=== PATIENT | male | born 1950 | race Caucasian/White ===

== ENCOUNTER 2017-11-09 20:00 | Inpatient (IN) ==
[2017-11-09 20:26] LABS: Basophils % 0.2 %; Eosinophils # 0.1 K/mcL (0.0-0.6); Eosinophils % 0.3 %; Hematocrit 41.5 % (37.5-50.1); Hemoglobin 13.5 g/dL (12.9-16.9); Immature Granulocytes % 0.5 % (0-4); Lymphocytes # 1.8 K/mcL (0.6-4.6); Lymphocytes % 12.2 %; Mean Corpuscular HGB Conc 32.5 g/dL (31.6-35.5); Mean Corpuscular Hemoglobin 28.5 pg (28.0-33.3); Mean Corpuscular Volume 87.7 fL (83.0-100.0); Mean Platelet Volume 9.7 fL (9.4-12.4); Monocytes # 0.7 K/mcL (0.0-1.3); Monocytes % 4.7 %; Neutrophils # 12.3 K/mcL (1.6-8.9); Platelet Count 231 K/mcL (140-400); Red Blood Count 4.73 M/mcL (4.19-5.50); Red Cell Distribution Width 14.2 % (11.5-14.5); Segmented Neutrophils % 82.1 %
[2017-11-09 20:44] LABS: Potassium 3.3 mEq/L (3.5-5.1)
[2017-11-09] MEDS ORDERED: Levofloxacin 750 MG/150 ML 750 MG/150 ML BAG IVPB ONE (21:07)
[2017-11-09] MEDS ORDERED: Ibuprofen 600 MG TABLET PO ONE (21:07)
[2017-11-09] MEDS ORDERED: Aspirin 81 MG TAB.CHEW PO ONE (21:07)
--- NOTE | 2017-11-09 22:04 | Emergency Department Note ---
Disposition Clinical Impression: Stable angina, Community acquired bacterial pneumonia Disposition: Admitted As Inpatient Condition: Good [facility]: [facility]Primary Care Provider[facility] - Forms: ED Satisfaction Letter Time of Disposition: 22:09 Chest Pain HPI - General Chief Complaint: ED Chest Pain Stated Complaint: chest pain Time Seen by Provider: 11/09/17 20:05 Source: patient Mode of arrival: ambulatory Limitations: no limitations Vital Signs Reviewed: Yes Nursing Notes Reviewed: Yes - History of Present Illness HPI Narrative: 66-year-old male presents to the emergency department with chest pain. He said this began a few days ago and has progressively gotten worse he said the chest pain is on the left side radiating up into his neck. He states had a cardiac stent placed in December she is no longer on any anticoagulation for that. He says he is short of breath. Does have history of COPD is on home oxygen. Her all the time says he only wears it when he needs it. He has a pulse ox which he walks his regularly that is normally been around 92-93%. Patient has a cough with sputum production unsure of the color the sputum production. Patient said he did not feel like he had a fever but on presentation here he did have a fever of 103. Patient otherwise having no complaints including headache, blurry vision, neck pain, back pain, chills, nausea, vomiting, abdominal pain, pain with urination, change in bowel movements and painting and on the arms and legs or any generalized weakness. Severity scale (1-10): 7 - Related Data Allergies Allergy/AdvReac Type Severity Reaction Status Date / Time No Known Allergies Allergy Verified 11/09/17 20:04 Review of Systems: 10 point review of systems done and negative unless otherwise stated in history of present illness. All systems ED: reviewed and negative except as stated. Review of Systems: As Per HPI Chest Pain PMH - Past Medical History Medical history: Reports: COPD, coronary artery disease, hyperlipidemia, hypertension, myocardial infarction Psychiatric history: Reports: no psych history - Social History Smoking Status: Former smoker Alcohol use: Reports: none Drug use: Reports: none Physical Exam - General Limitations: no limitations General appearance: alert, in no apparent distress - Head Head exam: atraumatic, normocephalic, normal inspection - Eye Eye exam: Present: normal appearance, PERRL, EOMI - ENT ENT exam: normal exam, normal oropharynx, mucous membranes moist - Neck Neck exam: Present: normal inspection, full ROM, trachea midline - Chest Chest inspection: Present: normal inspection, symmetric chest wall rise - Respiratory Respiratory exam: Absent: respiratory distress, wheezes, stridor, accessory muscle use - Expanded Respiratory Exam Location: rhonchi: Left, Right, Upper, Lower - Cardiovascular Cardiovascular exam: Present: regular rate, normal rhythm, normal heart sounds - Abdominal Exam Abdominal exam: Present: soft, Non-Tender. Absent: tenderness, distention, guarding, rebound, rigidity - Extremities Exam Extremities exam: Present: normal inspection, full ROM. Absent: tenderness, pedal edema - Expanded Lower Extremity Exam Neurovascular/Tendon exam: Present: normal capillary refill. Absent: pulse deficit, motor deficit, sensory deficit, tendon deficit - Back Exam Back exam: Present: normal inspection, full ROM. Absent: tenderness, CVA tenderness (R), CVA tenderness (L) - Neurological Exam Neurological exam: Present: alert, oriented X3 - Skin Skin exam: Present: warm, dry, intact, normal color Course Course Narrative: 66-year-old male presents the emergency department complaining of chest pain and shortness of breath. Patient did have a fever here. Will get CBC, BMP, blood cultures and troponin. as well as chest x-ray. Due to him clinically having pneumonia we will start treatment with Levaquin. She is also having chest pain so we will give him aspirin as well. Vital Signs Temperature 103 F H 11/09/17 20:04 Pulse Rate 78 11/09/17 20:04 Respiratory Rate 22 11/09/17 20:04 Blood Pressure 136/66 11/09/17 20:04 O2 Sat by Pulse Oximetry 94 11/09/17 20:04 Temperature 103 F H 11/09/17 20:04 Pulse Rate 68 11/09/17 22:09 Respiratory Rate 22 11/09/17 20:04 Blood Pressure 127/52 11/09/17 22:09 O2 Sat by Pulse Oximetry 96 11/09/17 22:09 Oxygen Delivery Oxygen Delivery Room Air Chest Pain - MDM Narrative Medical decision making narrative: 66-year-old male presented to the emergency department complaining of shortness of breath and chest pain. Patient does have history of a stent placement in December. Says the chest pain is left-sided going up into his jaws was normal here but we will give him aspirin. There was no acute ST changes or any other signs of ischemia on his EKG. Patient did not clinically have pneumonia even though chest x-ray showed no pneumonia so we did start Levaquin. He was hypoxic at 92% but is chronically on oxygen for his COPD. Patient did have fever and evaluations we did give him ibuprofen. Patient is going to be admitted to the hospital service for trending troponins due to his chest pain as well as IV antibiotics which is Levaquin. Blood cultures were ordered and are pending. Spoke with Dr. Goldstein the hospitalist who agreed to admit the patient to their service. Patient is admitted in stable condition. Chest X-Ray 11/09/17 20:13 IMPRESSION: No acute process. D/ / Odilon Tsai MD / Odilon Tsai MD Interpreting Provider: Odilon Tsai MD - Medical Records Medical records reviewed: Yes I reviewed the patient's medical records. - Lab Data Lab results reviewed: Yes I reviewed the patient's lab results. Result diagrams: 11/09/17 20:16 11/09/17 20:16 Lab Results 11/09/17 11/09/17 11/09/17 Range/Units 20:16 20:16 20:16 WBC 15.0 H (4.3-11.1) K/mcL RBC 4.73 (4.19-5.50) M/mcL Hgb 13.5 (12.9-16.9) g/dL Hct 41.5 (37.5-50.1) % MCV 87.7 (83.0-100.0) fL MCH 28.5 (28.0-33.3) pg MCHC 32.5 (31.6-35.5) g/dL RDW 14.2 (11.5-14.5) % Plt Count 231 (140-400) K/mcL MPV 9.7 (9.4-12.4) fL Immature Gran % 0.5 (0-4) % Seg Neutrophils % 82.1 % Lymphocytes % 12.2 % Monocytes % 4.7 % Eosinophils % 0.3 % Basophils % 0.2 % Neutrophils # 12.3 H (1.6-8.9) K/mcL Lymphocytes # 1.8 (0.6-4.6) K/mcL Monocytes # 0.7 (0.0-1.3) K/mcL Eosinophils # 0.1 (0.0-0.6) K/mcL Basophils # 0.0 (0.0-0.2) K/mcL Sodium 136 (136-145) mEq/L Potassium 3.3 L (3.5-5.1) mEq/L Chloride 99 (98-107) mEq/L Carbon Dioxide 28 (23-29) mEq/L BUN 33 H (8-23) mg/dL Creatinine 1.50 H (0.70-1.30) mg/dL Est GFR ( Amer) 56 L (> 60) Est GFR (Non-Af Amer) 47 L (> 60) BUN/Creatinine Ratio 22 (6-26) Glucose 129 H (70-105) mg/dL Calculated Osmolality 291 (280-300) Calcium 9.0 (8.6-10.3) mg/dL Troponin I < 0.03 (< 0.04) ng/mL - Radiology Data Radiology results reviewed: Yes I reviewed the patient's radiology results. - EKG Data EKG attestation: Yes I reviewed and interpreted this EKG. EKG results narrative: EKG done at 2012 review myself the attending shows sinus rhythm at a rate of 75 , MS interval 159, QRS 93, QTC 425 with a normal axis. There is no acute ST changes, no acute T-wave abnormalities, no other signs of ischemia. No signs of any heart strain or hypertrophy or any heart blocks. No signs of WPW/ Brugada syndrome. This EKG is unchanged when compared with old one done . Heart Score - Score History: Moderately Suspicious EKG: Normal Age: Greater than 65 Risk Factors: Equal/Greater than 3 risk factor or history of atherosclerotic disease Troponin: Less than normal limit HEART Score Total: 5 Attestation Statement - Attestation Attestation: I, Alfredo Alberto MD, personally evaluated this patient and discussed their management with the resident physician. I reviewed the resident's note and agree with the documented findings, medical decision making, and plan of care. 66-year-old male presents to the emergency department with a complaint of left- sided chest pain which started last evening. He states the pain started last evening and hurt pretty bad all night but did not seem to be better throughout the day today. This evening the pain became worse again. The pain is in the entire left side of the chest and radiates up into the left side of the neck certain movements. No radiation to the arms or back. Patient does have a history of coronary artery disease and has coronary artery stents. He does complain of some increased nonproductive cough over the past few days. Also he has not really noticed a fever but has had a lot of chills since last evening and states he is been freezing all day. Temperature here noted to be 103. On examination patient is a well-developed well-nourished well-appearing elderly male in no acute distress. He is alert and oriented 3. There is no cyanosis or diaphoresis. Rest is nontender to palpation. Breath sounds are equal bilaterally with some mild left posterior rales. No wheezes noted. Heart regular rate and rhythm. Abdomen soft and nontender with normal bowel sounds. EKG normal. Chest x-ray shows no acute process. Labs reviewed. Flu swab negative. Leukocytosis present. Although there is nothing on the chest x-ray at present patient clinically has pneumonia with cough, fever, leukocytosis, shortness of breath, and left-sided chest pain. Blood cultures obtained and antibiotics initiated. The hospitalist, Dr. Goldstein, was consulted and accepted admission of the patient.
[2017-11-10] MEDS ORDERED: Acetaminophen 325 MG TABLET PO PRN (00:20)
[2017-11-10] MEDS ORDERED: Naloxone 0.4 MG/ML INJ IVP PRN (00:20)
[2017-11-10] MEDS ORDERED: Ondansetron 4 MG/2 ML VIAL IVP PRN (00:20)
[2017-11-10] MEDS ORDERED: Ipratropium/Albuterol Neb 3 ML IH PRN (00:26)
[2017-11-10] MEDS ORDERED: Furosemide 20 MG TABLET PO PRN (00:27)
[2017-11-10] MEDS ORDERED: Nitroglycerin 0.4 MG TAB.SUBL SL PRN (00:27)
[2017-11-10 01:13] LABS: Basophils % 0.2 %; Eosinophils % 0.1 %; Hematocrit 36.8 % (37.5-50.1); Hemoglobin 12.2 g/dL (12.9-16.9); Immature Granulocytes % 1.1 % (0-4); Lymphocytes # 1.2 K/mcL (0.6-4.6); Lymphocytes % 6.8 %; Mean Corpuscular HGB Conc 33.2 g/dL (31.6-35.5); Mean Corpuscular Hemoglobin 28.7 pg (28.0-33.3); Mean Corpuscular Volume 86.6 fL (83.0-100.0); Mean Platelet Volume 9.8 fL (9.4-12.4); Monocytes # 1.4 K/mcL (0.0-1.3); Monocytes % 8.2 %; Neutrophils # 14.4 K/mcL (1.6-8.9); Platelet Count 191 K/mcL (140-400); Red Blood Count 4.25 M/mcL (4.19-5.50); Red Cell Distribution Width 14.4 % (11.5-14.5); Segmented Neutrophils % 83.6 %
[2017-11-10] MEDS: Carbidopa/Levodopa 25/100 TABLET PO SCH ×4 (01:15→21:46)
[2017-11-10] MEDS: cefTRIAXone 1,000 MG in Water for inj. (sterile) 10 ML IVP SCH ×2 (01:16→09:56)
[2017-11-10] MEDS: predniSONE 20 MG TABLET PO SCH ×2 (01:17→09:51)
[2017-11-10] MEDS: Azithromycin 500 MG in D5% in Water 250 ML IVPB SCH (01:17)
[2017-11-10 01:33] LABS: Calcium 8.7 mg/dL (8.6-10.3); Magnesium 1.6 mg/dL (1.6-2.6)
[2017-11-10] MEDS: Ipratropium/Albuterol Neb 3 ML IH SCH ×4 (03:48→22:34)
--- NOTE | 2017-11-10 05:14 | Internal Med History&Physical ---
Date of Encounter: 11/09/17 Time of Encounter: 22:00 Assessment and Plan (1) COPD exacerbation Current visit: Yes Status: Acute Pt has increased SOB with wheezing, consider COPD exacerbation. - Place pt on abx, steroid and bronchidialator. - Cont Oygen supportive treatment. (2) Chest pain Current visit: Yes Status: Acute Etiology is undetermined. Pt has COPD exacerbation, may contribute this mild chest pain, however, pt has hx of CAD s/p stent, need to r/o ACS. EKG unremarkable. - Pt had stress test recently (last year) in [place], negative. - Will place pt on continuous cardiac monitoring. - Track 3 sets of troponin - Check echo Qualifiers: Chest pain type: other chest pain Qualified Code(s): R07.89 - Other chest pain; R07.8 - Other chest pain (3) HTN (hypertension) Current visit: Yes Status: Acute Cont home meds. Qualifiers: Hypertension type: essential hypertension Qualified Code(s): I10 - Essential (primary) hypertension (4) Parkinson disease Current visit: Yes Status: Acute Cont home med carbidopa/levodopa (5) CAD (coronary artery disease) Current visit: Yes Status: Acute Cont home med asa, BB, and statin. Qualifiers: Coronary Disease-Associated Artery/Lesion type: [place] artery [place] vs. transplanted heart: [place] heart Associated angina: with stable angina Qualified Code(s): I25.118 - Atherosclerotic heart disease of [place] coronary artery with other forms of angina pectoris (6) DVT prophylaxis Current visit: Yes Status: Acute Heparin SC (7) Community acquired bacterial pneumonia Current visit: Yes Status: Acute Pt has fever, leukocytosis, increased cough, and increased SOB, although CXR negative, consider early stage CAP. - Will treat pt with azithromycin and rocephin. - Closely monitor pt. Internal Medicine - H&P: HPI Chief complaint: chest pain Admitted From: Home Plans for Post Hospital Care: Home History of present illness: Mr. Moctezuma is a 66 year old male with hx of COPD on home O2, PTSD, HTN, CKD stage III, parkinson disease, CAD s/p stent, present to ER for chest pain since yesterday evening. Pain is sharp, located on left chest and radiated to left neck. Constant, 2-3/10. Pt has chills and has fever to 103. He also has nonproductive cough for 1-2 days and increased SOB. Pt has mild nausea but no vomiting. Pt denies diaphoresis. Past Med Surg Social Fam HX - Past Medical History Medical history: COPD, coronary artery disease, hyperlipidemia, hypertension, myocardial infarction, renal disease, other Psychiatric history: PTSD - Social History Smoking Status: Former smoker Alcohol use: none Drug use: none - Family History Mother Adopted: [place]: ETHAL Family Member Ethnicity: Non- Living Status: Age at : 87 Cause of : SEPSIS Hx Family Cardiac Disorders: Yes (HTN) Hx Family Respiratory Disorders: No Hx Family Cancer: No Hx Family GI Disorders: No Hx Family Genitourinary Disorders: No Hx Family Endocrine Disorder: No Hx Family Musculoskeletal Disorders: No Hx Family Neuromuscular Disorders: No Hx Family Neurologic Disorders: Yes (CVA) Hx Family HEENT Disorders: No Hx Family Autoimmune Disorders: No Hx Family Reproductive Disorders: No Hx Family Psychosocial Disorders: No Hx Family Medical Disorders: No Internal Medicine - H&P: Meds Albuterol Sulfate [Albuterol Inhaler] 2 puff IH Q4H PRN 11/09/17 [History] Aspirin 81 mg PO DAILY 11/09/17 [History] Carbidopa/Levodopa [Carbidopa-Levodopa 25-100 Tab] 1 tab PO TID 11/09/17 [ History] Clopidogrel [Plavix] 75 mg PO DAILY 11/09/17 [History] Enalapril Maleate [Vasotec] 20 mg PO DAILY 11/09/17 [History] Furosemide [Lasix] 20 mg PO AD PRN 11/09/17 [History] Metoprolol Succinate 100 mg PO DAILY 11/09/17 [History] Nitroglycerin [Nitrostat] 0.4 mg PO Q5M PRN 11/09/17 [History] Omeprazole [PriLOSEC] 20 mg PO DAILY 11/09/17 [History] Potassium Chloride [Klor-Con 10] 10 meq PO AD PRN 11/09/17 [History] Sertraline [Zoloft] 150 mg PO DAILY 11/09/17 [History] Simvastatin [Zocor] 60 mg PO HS 11/09/17 [History] hydroCHLOROthiazide [Hydrochlorothiazide] 25 mg PO DAILY 11/09/17 [History] 3 Allergy/AdvReac Type Severity Reaction Status Date / Time mirtazapine [From Remeron] AdvReac See Verified 11/09/17 22:48 Comments All Systems PM: A 10-system review of systems was performed and is negative for pertinent findings except as documented above in the HPI. - Constitutional Vitals: Temp Pulse Resp BP Pulse Ox 97.5 F L 63 16 110/54 96 11/10/17 03:14 11/10/17 03:14 11/10/17 03:14 11/10/17 03:14 11/10/17 03:14 General appearance: Present: mild distress, A&O X 3, answers questions appropriately - Head Head exam: Present: atraumatic, normocephalic - Eye Eye exam: Present: PERRL, conjuntiva pink, sclera anicteric Pupils: Present: PERRL - Neck Neck exam general surgery: Present: supple, trachea midline. Absent: lymphadenopathy - Respiratory Respiratory exam: Present: CTAB, wheezes (scattered wheezes b/l). Absent: accessory muscle use, rales, rhonchi - Cardiovascular Cardiovascular exam: Present: RRR, +S1, +S2. Absent: diastolic murmur, gallop, rubs, systolic murmur - GI/Abdominal GI/Abdominal exam: Present: normal bowel sounds, soft, no peritoneal signs. Absent: distended, tenderness - Extremities Exam Extremities exam: Present: warm, radial pulses palpable and symmetrical. Absent : calf tenderness, cyanotic, pedal edema - Neurological Exam Neurological exam: Present: CN II-XII intact, oriented X3, no focal deficits. Absent: pronater drift, facial droop, speech deficit - Skin Skin exam: Present: dry, intact Internal Med - H&P Results - Labs CBC & Chem 7: 11/10/17 00:42 11/10/17 00:42 Labs: Short CBC 11/10/17 Range/Units 00:42 WBC 17.2 H (4.3-11.1) K/mcL Hgb 12.2 L (12.9-16.9) g/dL Hct 36.8 L (37.5-50.1) % Plt Count 191 (140-400) K/mcL Neutrophils # 14.4 H (1.6-8.9) K/mcL BMP 11/10/17 00:42 Sodium 136 Potassium 3.0 L Chloride 100 Carbon Dioxide 29 BUN 37 H Creatinine 1.62 H Glucose 134 H Calcium 8.7 Cardiac Enzymes 11/10/17 Range/Units 00:42 Troponin I 0.03 (< 0.04) ng/mL - EKG Data -: EKG Interpreted by Myself EKG shows normal: sinus rhythm Rate: normal - EKG Data Prior EKG available for review: yes When compared to previous EKG: there is no significant change
[2017-11-10] MEDS: *HR* Heparin 5,000 UNIT/ML VIAL SQ SCH ×2 (06:11→16:56)
[2017-11-10] MEDS ORDERED: Metoprolol XL (24 HR) Succ 50 MG TAB.ER.24H PO SCH ×2 (09:00→21:00)
[2017-11-10] MEDS ORDERED: Aspirin 81 MG TAB.CHEW PO SCH ×2 (09:00→21:00)
[2017-11-10] MEDS: Lisinopril 20 MG TABLET PO SCH (09:51)
[2017-11-10] MEDS: hydroCHLOROthiazide 25 MG TABLET PO SCH (09:51)
--- NOTE | 2017-11-10 18:29 | Internal Med Progress Note ---
Date of Encounter: 11/10/17 Time of Encounter: 18:27 - Assessment and plan (1) COPD exacerbation Current Visit: Yes Status: Acute Assessment and plan: Continue steroid and bronchidialator. - Cont Oygen supportive treatment. (2) Chest pain Current Visit: Yes Status: Acute Assessment and plan: He has 3 negative troponin, echocardiogram is done but report is pending. Qualifiers: Chest pain type: other chest pain Qualified Code(s): R07.89 - Other chest pain; R07.8 - Other chest pain (3) HTN (hypertension) Current Visit: Yes Status: Acute Assessment and plan: Continue home medications BP is well controlled Qualifiers: Hypertension type: essential hypertension Qualified Code(s): I10 - Essential (primary) hypertension (4) Parkinson disease Current Visit: Yes Status: Acute Assessment and plan: Continue home medications (5) CAD (coronary artery disease) Current Visit: Yes Status: Acute Assessment and plan: Continue home medication with aspirin and beta Ashu and statin Qualifiers: Coronary Disease-Associated Artery/Lesion type: [place] artery [place] vs. transplanted heart: [place] heart Associated angina: with stable angina Qualified Code(s): I25.118 - Atherosclerotic heart disease of [place] coronary artery with other forms of angina pectoris (6) DVT prophylaxis Current Visit: Yes Status: Acute Assessment and plan: Subcutaneous heparin - Time Spent With Patient 25 - 35 minutes - Subjective Interval history: Mr. Moctezuma is a 66 year old male with hx of COPD on home O2, PTSD, HTN, CKD stage III, parkinson disease, CAD s/p stent, present to ER for chest pain since yesterday evening. Pain is sharp, located on left chest and radiated to left neck. Constant, 2-3/10. Pt has chills and has fever to 103. He also has nonproductive cough for 1-2 days and increased SOB. Pt has mild nausea but no vomiting. Pt denies diaphoresis. Patient is doing okay, shortness of breath improved. He still has on and off chest congestion and tightness. 2 L nasal cannula which is at his baseline - Constitutional Vitals: Temp Pulse Resp BP Pulse Ox 97.3 F L 63 16 140/70 96 11/10/17 16:47 11/10/17 16:47 11/10/17 17:32 11/10/17 16:47 01/19/18 17:32 General appearance: Present: mild distress, A&O X 3, answers questions appropriately Exam: CONSTITUTIONAL: patient appears as an age appropriate male in no acute distress. EYES Clear sclerae, bilateral pupils are equal, reactive to light. EMOI. RESPIRATORY: No accessory muscle use, bilateral reduced breath sounds scant wheezing to auscultation, , no crackles/rales. CARDIOVASCULAR: Regular heart rate, normal S1 and S2, no murmurs GASTROINTESTINAL: bowel sounds present, soft, no tenderness. MUSCULOSKELETAL: Joints in normal range of motion, no clubbing, no edema, no cyanosis. Bilateral peripheral pulses 2+. NEUROLOGIC: CN II to XII are grossly intact, no focal neurological deficit. Internal Medicine: Result - Labs CBC & Chem 7: 11/10/17 00:42 11/10/17 00:42 Labs: Cardiac Enzymes 11/10/17 Range/Units 06:16 Troponin I < 0.03 (< 0.04) ng/mL Consult Discharge Plan - Plan [facility]errals: [facility] [Primary Care Provider] -
[2017-11-11] MEDS: Azithromycin 500 MG in D5% in Water 250 ML IVPB SCH (01:00)
[2017-11-11] MEDS: Ipratropium/Albuterol Neb 3 ML IH SCH ×3 (04:53→16:16)
[2017-11-11] MEDS: *HR* Heparin 5,000 UNIT/ML VIAL SQ SCH (06:11)
[2017-11-11 07:19] LABS: Basophils % 0.2 %; Eosinophils % 0.1 %; Hematocrit 35.2 % (37.5-50.1); Hemoglobin 11.5 g/dL (12.9-16.9); Immature Granulocytes % 1.1 % (0-4); Lymphocytes # 1.6 K/mcL (0.6-4.6); Mean Corpuscular HGB Conc 32.7 g/dL (31.6-35.5); Mean Corpuscular Hemoglobin 28.7 pg (28.0-33.3); Mean Corpuscular Volume 87.8 fL (83.0-100.0); Mean Platelet Volume 10.3 fL (9.4-12.4); Monocytes # 1.1 K/mcL (0.0-1.3); Monocytes % 6.2 %; Platelet Count 214 K/mcL (140-400); Red Blood Count 4.01 M/mcL (4.19-5.50); Red Cell Distribution Width 14.4 % (11.5-14.5); Segmented Neutrophils % 83.4 %
[2017-11-11 07:21] LABS: BUN/Creatinine Ratio 24 (6-26); Blood Urea Nitrogen 33 mg/dL (8-23); Calcium 9.1 mg/dL (8.6-10.3); Carbon Dioxide 29 mEq/L (23-29); Chloride 104 mEq/L (98-107); Glucose 211 mg/dL (70-105); Osmolality,Calculated 302 (280-300); Potassium 2.9 mEq/L (3.5-5.1); Sodium 139 mEq/L (136-145); eGFR For African Americans > 60 (> 60); eGFR For Non-African Americans 52 (> 60)
[2017-11-11] MEDS: predniSONE 20 MG TABLET PO SCH (08:58)
[2017-11-11] MEDS: hydroCHLOROthiazide 25 MG TABLET PO SCH (08:58)
[2017-11-11] MEDS: Lisinopril 20 MG TABLET PO SCH (08:59)
[2017-11-11] MEDS: Carbidopa/Levodopa 25/100 TABLET PO SCH ×2 (08:59→14:52)
[2017-11-11] MEDS: cefTRIAXone 1,000 MG in Water for inj. (sterile) 10 ML IVP SCH (09:03)
--- NOTE | 2017-11-11 10:06 | Electrocardiograph Report ---
[place] [id number] Test Date: 2017-11-09 Pat Name: Finn Moctezuma Department: 102 Room: 3B Gender: M Senior Investment Manager: Guillermo : 1950 Requested By: Alfredo Alberto Order Number: [id number] Reading MD: Ishan Betts DO Measurements Intervals [place] Rate: 75 P: 52 DE: 159 QRS: 66 QRSD: 93 T: 61 QT: 396 QTc: 425 Interpretive Statements SINUS RHYTHM Electronically Signed On 11-11-2017 10:04:57 EST by Ishan Betts DO
[2017-11-11 15:50] VITALS: BP 112/50
--- NOTE | 2017-11-11 17:00 | Discharge Summary ---
Date of Encounter: 11/27/17 Time of Encounter: 16:58 - Discharge Diagnosis (1) COPD exacerbation Priority: Primary Status: Acute Comments: Mr. Moctezuma is a 66 year old male with hx of COPD on home O2, PTSD, HTN, CKD stage III, parkinson disease, CAD s/p stent, present to ER for chest pain, chills and has fever to 103F. He also had nonproductive cough for 1-2 days and increased SOB.Pt has mild nausea but no vomiting. CXR did not reveal any infiltrates He is being treated for acute exacerbation of COPD. His shortness of breath and wheezing has improved and he is feeling better. (2) Chest pain Priority: Secondary Status: Acute Comments: He had chest pain on presentation. initial EKG is negative for acute changes. Troponin x3 is negative. PA ruled out. Qualifiers: Chest pain type: other chest pain Qualified Code(s): R07.89 - Other chest pain; R07.8 - Other chest pain (3) CAD (coronary artery disease) Priority: Secondary Status: Acute Comments: His chest pain is not concerning for CAD. Qualifiers: Coronary Disease-Associated Artery/Lesion type: bypass graft [place] vs. transplanted heart: [place] Associated angina: with stable angina Qualified Code(s): I25.708 - Atherosclerosis of coronary artery bypass graft(s) , unspecified, with other forms of angina pectoris (4) Leukocytosis Priority: Secondary Status: Acute Comments: He has Leukocytosis. WBC is 18 which is likely due to steroid treatment. Recommended follow up after completed the course of steroid. Qualifiers: Leukocytosis type: other Qualified Code(s): D72.828 - Other elevated white blood cell count - Discharge Medications Prescriptions: Azithromycin [Zithromax] 250 mg PO Q24H 4 Days #4 tablet Cefdinir [Omnicef] 300 mg PO BID 5 Days #10 capsule predniSONE [PredniSONE] 10 mg PO DAILY 9 Days #18 tablet Home Medications: Albuterol Sulfate [Albuterol Inhaler] 2 puff IH Q4H PRN 11/09/17 [History] Aspirin 81 mg PO HS 11/09/17 [History] Carbidopa/Levodopa [Carbidopa-Levodopa 25-100 Tab] 1 tab PO TID 11/09/17 [ History] Clopidogrel [Plavix] 75 mg PO DAILY 11/09/17 [History] Enalapril Maleate [Vasotec] 20 mg PO DAILY 11/09/17 [History] Furosemide [Lasix] 20 mg PO AD PRN 11/09/17 [History] Metoprolol Succinate 100 mg PO HS 11/09/17 [History] Nitroglycerin [Nitrostat] 0.4 mg PO Q5M PRN 11/09/17 [History] Omeprazole [PriLOSEC] 20 mg PO HS 11/09/17 [History] Potassium Chloride [Klor-Con 10] 10 meq PO AD PRN 11/09/17 [History] Sertraline [Zoloft] 150 mg PO DAILY 11/09/17 [History] Simvastatin [Zocor] 60 mg PO HS 11/09/17 [History] hydroCHLOROthiazide [Hydrochlorothiazide] 25 mg PO DAILY 11/09/17 [History] Azithromycin [Zithromax] 250 mg PO Q24H 4 Days #4 tablet 11/11/17 [Rx] Cefdinir [Omnicef] 300 mg PO BID 5 Days #10 capsule 11/11/17 [Rx] predniSONE [PredniSONE] 10 mg PO DAILY 9 Days #18 tablet 11/11/17 [Rx] Allergies/Adverse Reactions: 3 Allergy/AdvReac Type Severity Reaction Status Date / Time mirtazapine [From Remeron] AdvReac See Verified 11/09/17 22:48 Comments Date of admission: 11/10/17 05:54 Primary care physician: PCP [place] - Patient Status Disposition: Home, Self-Care Condition: Good Functional capacity at discharge: independent ambulation - Discharge Instructions Instructions: Prednisone (By mouth), Azithromycin (By mouth), Cefdinir (By mouth), Chest Pain (DC), Chronic Obstructive Pulmonary Disease (DC), Pneumonia ( DC) Additional Instructions: follow up with your primary care provider in the next 5 to 7 days. Activity: increase activity as tolerated Diet: advance to your usual diet (Follow-up with primary care physician with repeat CBC to see improvement in his leukocytosis. Follow up on BMP regarding chronic kidney disease.) - Diet and Activity Activity: increase activity as tolerated Diet: advance to your usual diet (Follow-up with primary care physician with repeat CBC to see improvement in his leukocytosis. Follow up on BMP regarding chronic kidney disease.) Hospital course: Mr. Moctezuma is a 66 year old male admitted with the cough left-sided chest pain and shortness of breath. Noted to have acute exacerbation of COPD with bronchitis. Chest x-ray negative for any pneumonia. The left-sided chest pain was investigated with serial cardiac enzymes. Which was negative. Had an echocardiogram which is pending at the time of discharge. He felt significantly better and wanted to be discharged today. He is being discharged on Zithromax Omnicef and tapering dose of prednisone. He is already on home oxygen. - Time Spent with Patient Total time spent providing and/or coordinating discharge services: Greater than 30 minutes (Follow-up with primary care physician in 1-2 weeks he follow-up at [facility].) - Constitutional Vitals: Temp Pulse Resp BP Pulse Ox 97.6 F 62 16 112/50 96 11/11/17 15:49 11/11/17 15:49 11/11/17 16:16 11/11/17 15:49 11/11/17 16:16 General appearance: Present: mild distress, A&O X 3, answers questions appropriately Exam: Middle-aged male in no respiratory distress. He is alert awake oriented. Vitals stable. S1-S2 regular. No murmur appreciated. Respiratory system decreased antibody bilaterally no crepitations or rhonchi. Abdomen soft nontender. Extremities no edema.
== END 2017-11-11 18:00 | disposition home or self-care (01) | DRG 190 ==
LOC: 3BNU 20:00 → EMEROO 20:00 → 3BNU 22:49 → SUATTDRO 11-10 05:54
PROVIDERS: ADMIT Registered Nurse; ATTEND Hospitalist